=== PATIENT | male | born 1965 | race Native Hawaiian/Other Pacific Islander ===

== ENCOUNTER 2020-02-15 09:19 | Inpatient (IN) | payer BC ==
[~2020-02-15] VITALS: Ht 162.6 cm; Wt 62.6 kg
[2020-02-15] VITALS (9 sets, daily range): BP systolic 118–193; BP diastolic 53–107; TEMP 97.9–99.8; Ht 162.6 cm; Wt 62.6 kg
[2020-02-15 10:03] LABS: PLATELET COUNT 217 K/uL (142-355)
[2020-02-15 10:27] LABS: POTASSIUM 3.7 mmol/L (3.6-5.2)
[2020-02-16] VITALS: BP 150/111; TEMP 98.3
[2020-02-16 04:00] VITALS: BP 147/99; TEMP 99.1
[2020-02-16 04:35] LABS: POTASSIUM 4.2 mmol/L (3.6-5.2)
[2020-02-16 05:02] LABS: PLATELET COUNT 188 K/uL (142-355)
[2020-02-16 12:00] VITALS: BP 100/80; TEMP 98.9
[2020-02-16 16:00] VITALS: BP 137/56; TEMP 98.4
[2020-02-16 20:00] VITALS: BP 167/104; TEMP 99.5
[2020-02-17] VITALS: BP 135/77; TEMP 98.2
[2020-02-17 04:00] VITALS: BP 141/98; TEMP 99.8
[2020-02-17 05:36] LABS: POTASSIUM 4.7 mmol/L (3.6-5.2)
[2020-02-17 06:09] LABS: PLATELET COUNT 245 K/uL (142-355)
[2020-02-17 08:00] VITALS: BP 162/107; TEMP 98.3
[2020-02-17 12:00] VITALS: BP 136/100; TEMP 98
[2020-02-17 16:00] VITALS: BP 142/98; TEMP 97.6
[2020-02-17 20:00] VITALS: BP 171/108; TEMP 98.9
[2020-02-18] VITALS: BP 155/101; TEMP 98.8
[2020-02-18 04:00] VITALS: BP 145/89; TEMP 98.9
== END 2020-02-18 09:51 | disposition left against medical advice (07) | DRG 871 ==
LOC: ED 09:19 → MED/SURG 12:47
PROVIDERS: Internal Medicine
DX: A41.89 Other specified sepsis (principal); J18.8 Other pneumonia, unspecified organism; J90 Pleural effusion, not elsewhere classified; J44.0 Chronic obstructive pulmonary disease with (acute) lower respiratory infection; R59.0 Localized enlarged lymph nodes; I10 Essential (primary) hypertension; F10.10 Alcohol abuse, uncomplicated; Z72.0 Tobacco use
CPT/HCPCS: 36415; 80053; 83605; 85007; 85027; 87040; 87077; 87185; 87186; 87205; 87635; 93005; 96360; 96365; 96372; 99284; J0360; J0456; J0696; J1650; J2060; J2930; J3411; Q9963; U0002